=== PATIENT | female | born 1995 | race Caucasian/White ===

== ENCOUNTER → 2020-06-19 | Outpatient (CLI) | payer OTHER ==
[~2020-06-19] MED LIST: DOCU100 PO; IBUP600 PO; IBUP800 PO; PRENATAL TABLE1 EAC2 PO; Percocet 5-3251 EACH PO
== END | disposition home or self-care (01) ==
LOC: LAB 15:59
PROVIDERS: Family Medicine
DX: Z34.01 Encounter for supervision of normal first pregnancy, first trimester (principal); Z3A.11 11 weeks gestation of pregnancy
CPT/HCPCS: G0123

== ENCOUNTER 2020-07-27 14:03 | Emergency (ER) | payer OTHER ==
[~2020-07-27] VITALS: Ht 152.4 cm; Wt 45.4 kg
== END 2020-07-27 16:43 | disposition home or self-care (01) ==
LOC: ER 14:03
DX: O9A.212 Injury, poisoning and certain other consequences of external causes complicating pregnancy, second trimester (principal); S39.91XA Unspecified injury of abdomen, initial encounter; Z3A.18 18 weeks gestation of pregnancy; V89.2XXA Person injured in unspecified motor-vehicle accident, traffic, initial encounter
CPT/HCPCS: 76815; 99283-25

== ENCOUNTER 2021-01-31 09:35 | Inpatient (IN) | payer OTHER ==
[~2021-01-31] VITALS: Ht 152.4 cm; Wt 57.5 kg
[2021-01-31 10:58] LABS: BASOPHILS ABSOLUTE AUTO 0.03 K/mm3 (0.00-0.23); BASOPHILS PERCENT AUTO 0 % (0-2); EOSINOPHILS ABSOLUTE AUTO 0.07 K/mm3 (0.00-0.68); EOSINOPHILS PERCENT AUTO 1 % (0-6); Hematocrit 33.9 % (33.0-51.0); IMMATURE GRAN ABSOLUTE AUTO 0.08 K/mm3 (0.00-0.10); IMMATURE GRAN PERCENT AUTO 1 % (0-1); LYMPHOCYTES ABSOLUTE AUTO 1.91 K/mm3 (0.84-5.20); LYMPHOCYTES PERCENT AUTO 18 % (21-46); MONOCYTES ABSOLUTE AUTO 0.78 K/mm3 (0.16-1.47); MONOCYTES PERCENT AUTO 7 % (4-13); Mean Corpuscular HGB 33.1 pg (26.0-34.0); Mean Corpuscular HGB Conc 35.4 g/dL (31.5-36.5); Mean Corpuscular Volume 94 fL (80-100); Mean Platelet Volume 10.6 fL (9.1-12.4); NEUTROPHILS ABSOLUTE AUTO 7.87 K/mm3 (1.96-9.15); NEUTROPHILS PERCENT AUTO 73 % (41-73); Platelet Count 187 K/mm3 (150-400); RDW Coefficient Variation 12.3 % (11.7-14.2); Red Blood Cell Count 3.62 M/mm3 (3.80-5.20); White Blood Cell Count 10.74 K/mm3 (4.00-11.30)
[2021-01-31 11:16] LABS: SARS-Cov-2 (COVID-19) PCR, MMC NEGATIVE (NEGATIVE)
--- NOTE | 2021-02-01 09:39 | NUR ---
02/01/21 0938 Velvet Martinez 0928 PT ARRIVED TO OR WITH LARA CATHETER INTACT DRAINING CLEAR YELLOW URINE, EPIDURAL CATHETER INTACT TO BE REDOSES BY DR MOLINA FOR PROCEDURE
[2021-02-01 10:20] LABS: PCO2 Cord - Arterial 49.3 mmHg (40-50); PO2 Cord - Arterial 17.9 mmHg (16-20); pH Cord - Arterial 7.17 (7.28-7.35)
[2021-02-01 10:25] LABS: PCO2 Cord - Venous 58.4 mmHg (40-50); pH Umbilical Cord - Venous 7.25 (7.26-7.35)
[2021-02-01 10:28] LABS: PO2 Cord - Venous < 23.2 mmHg (28-32)
[2021-02-01 12:12] LABS: BASOPHILS ABSOLUTE AUTO 0.02 K/mm3 (0.00-0.23); BASOPHILS PERCENT AUTO 0 % (0-2); EOSINOPHILS ABSOLUTE AUTO 0.02 K/mm3 (0.00-0.68); EOSINOPHILS PERCENT AUTO 0 % (0-6); Hematocrit 30.1 % (33.0-51.0); Hemoglobin 10.5 g/dL (11.5-16.0); IMMATURE GRAN PERCENT AUTO 1 % (0-1); LYMPHOCYTES ABSOLUTE AUTO 0.89 K/mm3 (0.84-5.20); LYMPHOCYTES PERCENT AUTO 5 % (21-46); MONOCYTES PERCENT AUTO 5 % (4-13); Mean Corpuscular HGB 33.8 pg (26.0-34.0); Mean Corpuscular HGB Conc 34.9 g/dL (31.5-36.5); Mean Corpuscular Volume 97 fL (80-100); NEUTROPHILS ABSOLUTE AUTO 15.17 K/mm3 (1.96-9.15); NEUTROPHILS PERCENT AUTO 89 % (41-73); Platelet Count 165 K/mm3 (150-400); RDW Coefficient Variation 12.4 % (11.7-14.2); RDW Standard Deviation 43.1 fL (35.1-46.3); Red Blood Cell Count 3.11 M/mm3 (3.80-5.20)
[2021-02-01 12:33] LABS: Alanine Aminotransfer (ALT/SGP 12 U/L (12-78); Albumin, Blood 2.2 g/dL (3.4-5.0); Albumin/Globulin Ratio 0.6 (0.8-1.8); Alk Phos 101 U/L (50-136); Anion Gap 8 mmol/L (6-16); Aspartate Aminotrans (AST/SGOT 24 U/L (12-37); Bilirubin, Total 0.6 mg/dL (0.1-1.0); Blood Urea Nitrogen 8 mg/dL (8-24); Bun/Creatinine Ratio 12.9 (12.0-20.0); CO2, Blood 23 mmol/L (21-32); Calcium, Blood 8.2 mg/dL (8.5-10.1); Chloride, Blood 107 mmol/L (98-108); Creatinine, Blood 0.62 mg/dL (0.40-1.00); Globulin, Blood 3.4 g/dL (2.2-4.0); Glomerular Filtration Rate >60 (60-); Glucose, Blood 97 mg/dL (70-99); Magnesium, Blood 1.6 mg/dL (1.6-2.4); Phosphorus, Blood 3.6 mg/dL (2.5-4.9); Potassium, Blood 3.8 mmol/L (3.5-5.5); Sodium, Blood 138 mmol/L (136-145); Total Protein, Blood 5.6 g/dL (6.4-8.2)
--- NOTE | 2021-02-01 13:23 | NUR ---
[address] COOK OF LAB RESULTS. OK TO GO OUT TO ROOM, CONTINOUS PULX OX UNTIL WIDE AWAKE AND SATS GREATER THAT 90. ALSO NOTIFY DR GIFFORD OF [facility]
--- NOTE | 2021-02-01 13:24 | NUR ---
[address] GIFFORD OF [facility]. NO NEW ORDERS
--- NOTE | 2021-02-01 14:36 | NUR ---
PACU ADDITIONAL CHARTIN PT TRANSFERRED TO [facility] PACU, DURING TRANSFER FROM OR BED TO [facility] B[facility] PT HAVING MYOCLONIC JERKING MOVEMENTS, LEGS MOVING ALL OVER PT, PT HANDS/FINGERS ENTENDED OUT AND FIRM PT UNABLE TO RELAX MUSCLES WHEN ASKED, PT TRYING SIT UP DOSING IN/OUT WAKES UP A BIT STARTLED 1110 RONNY CARE DONE, EPIDURAL CATHETER REMOVED TIP INTACT, DR COOK OUT OF ROOM. 1119 PT HR ELEVATING 130-150 MYOCLONIC JERKS INCREASING PT UNABLE TO RELAX, MAIN OR CALLED WILL PAGE DR COOK 1125 DR COOK AT BEDSIDE PT STILL UNABLE TO RELAX LEGS AND HAND/FINGERS, PT TRYING TO ASKING QUESTIONS BUT APPEARS UNABLE TO COMMUNICATE, WHEN ASKED IS SHE IS IN PAIN NODS HEAD SIDE TO SIDE, 1130 VERSED 2MG GIVEN BY DR COOK, PT SNORING 1135 DR COOK REMAINS AT BEDSIDE, DIFFICULT TO AROUSE PT TO FOLLOW COMMANDS AT THIS TIME PT UNABLE TO SQUEEZE HANDS 1140 O2 ON VIA NC @ 2 L/MIN WHILE PT SLEEPING [address] COOK OUT OF ROOM, PT AROUSES TO CHEST STIMULATION AND CAN NOD HEAD YES/NO TO ANSWER QUESTION, CONTINUES TO DENY PAIN MUSCLE TONE VERY RELAXED. 1200 PT REMAINS SLEEPING 1215 SO IN PACU PT BEGINNING TO WAKE UP EYELIDS VERY HEAVY, STILL UNABLE TO GET WORDS OUT TO COMMUNICATE 1234 O2 OFF, SO SHOWING PICTURES OF BABY ON HIS PHONE, PT REMEMBERING INFORMATION ABOUT IE NB WEIGHT TIME OF BUT IS STILL VERY GROGGY 1245 PT RESTING QUIETLY OCCASIONAL LEGS JERKS BUT PT WAS ABLE TO STOP THEM WHEN ASKED [address] COOK AND DR GIFFORD 1305 TRANSFER OUT TO ROOM 129, MYOCOLONIC JERKING HAS SIGNIFICANT DECREASES, OCCASSIONAL LEG MOVEMENT, PT DENIES PAIN
--- NOTE | 2021-02-01 14:58 | NUR ---
1310 PT OUT IN ROOM STILL APPEARS SLEEPY, TRANSPORT TEAM IN ROOM EXPLAINING PROCESS AND CONSENTS SIGNED, SO AT BEDSIDE 1320 TRANSPORT TEAM TO ROOM WITH NB PRIOR TO LEAVING. 1400 PT SITTING UP SIPPING ON CLEAR LIQUIDS, DENIES PAIN 1430 SLEEPING, PT MOTHER AT BEDSIDE [id number] REPT TO ROSALIE VARGAS
--- NOTE | 2021-02-01 15:11 | NUR ---
1400 SURGICAL DRESSING DRY/INTACT WITH ABD PRESSURE DRESSING ON TOP THAT IS ALSO DRY INTACT
[2021-02-01 19:38] LABS: BASOPHILS ABSOLUTE AUTO 0.02 K/mm3 (0.00-0.23); BASOPHILS PERCENT AUTO 0 % (0-2); EOSINOPHILS ABSOLUTE AUTO 0.04 K/mm3 (0.00-0.68); EOSINOPHILS PERCENT AUTO 0 % (0-6); Hematocrit 24.8 % (33.0-51.0); Hemoglobin 8.8 g/dL (11.5-16.0); IMMATURE GRAN ABSOLUTE AUTO 0.04 K/mm3 (0.00-0.10); IMMATURE GRAN PERCENT AUTO 0 % (0-1); LYMPHOCYTES ABSOLUTE AUTO 1.27 K/mm3 (0.84-5.20); LYMPHOCYTES PERCENT AUTO 10 % (21-46); MONOCYTES ABSOLUTE AUTO 0.62 K/mm3 (0.16-1.47); MONOCYTES PERCENT AUTO 5 % (4-13); Mean Corpuscular HGB Conc 35.5 g/dL (31.5-36.5); Mean Corpuscular Volume 96 fL (80-100); Mean Platelet Volume 10.2 fL (9.1-12.4); NEUTROPHILS ABSOLUTE AUTO 11.04 K/mm3 (1.96-9.15); NEUTROPHILS PERCENT AUTO 85 % (41-73); Platelet Count 133 K/mm3 (150-400); RDW Coefficient Variation 12.4 % (11.7-14.2); RDW Standard Deviation 42.5 fL (35.1-46.3); Red Blood Cell Count 2.59 M/mm3 (3.80-5.20); White Blood Cell Count 13.03 K/mm3 (4.00-11.30)
[2021-02-02 05:32] LABS: BASOPHILS ABSOLUTE AUTO 0.03 K/mm3 (0.00-0.23); BASOPHILS PERCENT AUTO 0 % (0-2); EOSINOPHILS ABSOLUTE AUTO 0.09 K/mm3 (0.00-0.68); EOSINOPHILS PERCENT AUTO 1 % (0-6); Hemoglobin 9.3 g/dL (11.5-16.0); IMMATURE GRAN ABSOLUTE AUTO 0.05 K/mm3 (0.00-0.10); IMMATURE GRAN PERCENT AUTO 0 % (0-1); LYMPHOCYTES ABSOLUTE AUTO 1.87 K/mm3 (0.84-5.20); LYMPHOCYTES PERCENT AUTO 14 % (21-46); MONOCYTES PERCENT AUTO 6 % (4-13); Mean Corpuscular HGB 34.3 pg (26.0-34.0); Mean Corpuscular HGB Conc 35.8 g/dL (31.5-36.5); Mean Corpuscular Volume 96 fL (80-100); Mean Platelet Volume 9.8 fL (9.1-12.4); NEUTROPHILS ABSOLUTE AUTO 10.81 K/mm3 (1.96-9.15); NEUTROPHILS PERCENT AUTO 79 % (41-73); Platelet Count 144 K/mm3 (150-400); RDW Coefficient Variation 12.6 % (11.7-14.2); RDW Standard Deviation 43.3 fL (35.1-46.3); Red Blood Cell Count 2.71 M/mm3 (3.80-5.20); White Blood Cell Count 13.65 K/mm3 (4.00-11.30)
--- NOTE | 2021-02-02 06:52 | NUR ---
LARA DISCONTINUED AT 0545 ON 02/02/21 BY RN. NO PRIOR INSERTION DOCUMENTATION
[2021-02-03] MEDS ORDERED: PRENATAL TABLE1 EAC2 PO (10:02)
[2021-02-03] MEDS ORDERED: Percocet 5-3251 EACH PO (10:03)
[2021-02-03] MEDS ORDERED: IBUP800 PO (10:03)
[2021-02-03] MEDS ORDERED: IBUP600 PO (10:07)
[2021-02-03] MEDS ORDERED: DOCU100 PO (10:08)
== END 2021-02-03 10:22 | disposition home or self-care (01) | DRG 788 ==
LOC: OBS 09:35 → BC 09:37 → OBS 09:58 → BC 09:59
PROVIDERS: Anesthesiology; ADMIT Family Medicine
PROC: 10H07YZ Insertion of Other Device into Products of Conception, Via Natural or Artificial Opening (ICD-10-PCS; 2021-02-01)
PROC: 3E033VJ Introduction of Other Hormone into Peripheral Vein, Percutaneous Approach (ICD-10-PCS; 2021-02-01)
PROC: 10D00Z1 Extraction of Products of Conception, Low, Open Approach (ICD-10-PCS; principal; 2021-02-01 10:30)
DX: O42.02 Full-term premature rupture of membranes, onset of labor within 24 hours of rupture (principal); O99.824 Streptococcus B carrier state complicating childbirth; O76 Abnormality in fetal heart rate and rhythm complicating labor and delivery; Z20.822 Contact with and (suspected) exposure to COVID-19; Z3A.40 40 weeks gestation of pregnancy; Z37.0 Single live birth; Z91.048 Other nonmedicinal substance allergy status
CPT/HCPCS: 36415; 59070; 80053; 82803; 83735; 84100; 85025; 86850; 86900; 86901; 88307; A9270; J0290; J0690; J1885; J2001; J2250; J2405; J2590; J2765; J3010; J7030; J7120; U0004

== ENCOUNTER 2023-07-13 10:02 | Emergency (ER) | payer OTHER ==
[~2023-07-13] VITALS: Ht 152.4 cm; Wt 52.2 kg
[~2023-07-13 10:02] MED LIST changes: +LORA10ER PO; +ZYRTEC10 M4 PO
[2023-07-13 10:12] VITALS: BP 146/82
[2023-07-13] MEDS ORDERED: HYDR1TAB94 PO (10:58)
== END 2023-07-13 11:18 | disposition home or self-care (01) ==
LOC: ER 10:02
DX: R07.89 Other chest pain (principal); R05.9 Cough, unspecified; F17.220 Nicotine dependence, chewing tobacco, uncomplicated; Z79.899 Other long term (current) drug therapy
CPT/HCPCS: 71101; 99283-25; A9270

== ENCOUNTER → 2025-04-24 | Outpatient (CLI) | payer OTHER ==
[~2025-04-24] MED LIST changes: +HYDR1TAB94 PO
[2025-04-25 13:27] LABS: Chlamydia Trachomatis Urine NOT DETECTED (NOT DETECT); Neisseria Gonorrhoea Urine NOT DETECTED (NOT DETECT)
== END ==
LOC: LAB 09:45 → LAB SHORT 09:45
PROVIDERS: Family Medicine
DX: Z34.81 Encounter for supervision of other normal pregnancy, first trimester (principal); Z3A.01 Less than 8 weeks gestation of pregnancy
CPT/HCPCS: 87086; 87491; 87591